=== PATIENT | male | born 1995 | race Caucasian/White ===

== ENCOUNTER → 2018-02-27 | Outpatient (CLI) | payer OTHER | LOC: YCFC.O 10:43 | DX: Z11.4 Encounter for screening for human immunodeficiency virus [HIV] (principal); Z11.59 Encounter for screening for other viral diseases; Z78.9 Other specified health status ==

== ENCOUNTER → 2018-05-04 | Outpatient (CLI) | payer OTHER | LOC: LAB.O 10:55 | PROVIDERS: ATTEND Nurse Practitioner Psychiatric/Mental Health | DX: F33.1 Major depressive disorder, recurrent, moderate (principal) ==